=== PATIENT | female | born 1985 | race Two or more races ===

== ENCOUNTER 2018-01-24 17:31 | Emergency (ER) | payer OTHER ==
[~2018-01-24] VITALS: Ht 152.4 cm; Wt 48.1 kg
[2018-01-24 17:46] VITALS: BP 112/60
[2018-01-24] MEDS ORDERED: IBUPROFEN 600 MG TABLET PO ONE ×2 (17:49→18:00)
== END 2018-01-24 17:54 | disposition home or self-care (01) ==
LOC: ER 17:42
DX: S39.82XA Other specified injuries of lower back, initial encounter (principal); W01.0XXA Fall on same level from slipping, tripping and stumbling without subsequent striking against object, initial encounter; Y93.89 Activity, other specified; Y92.89 Other specified places as the place of occurrence of the external cause; Y99.8 Other external cause status
CPT/HCPCS: 80305; 99283; A4606; Z7610